=== PATIENT | female | born 2000 | race Caucasian/White ===

== ENCOUNTER 2021-05-07 13:30 | Emergency (ER) | payer OTHER ==
[~2021-05-07] VITALS: Ht 160 cm; Wt 59.7 kg
[2021-05-07 13:49] VITALS: BP 119/70
[2021-05-07 14:48] LABS: ANION GAP 4 mmol/L (5-15); CALCIUM 8.6 mg/dL (8.5-10.1); CHLORIDE 111 mmol/L (98-107); CREATININE 0.49 mg/dL (0.55-1.02)
--- NOTE | 2021-05-07 16:02 | NUR ---
DR. PHIPPS SPOKE WITH PT IN TRIAGE 2 FROM [facility]. PT TO BE DC'D FROM ER AND EVAL'D BY L&D BY TASHA MCCARTNEY ON L&D. PT PROVIDED DC PAPERWORK AND WHEELED TO 2ND FLOOR FOR EVAL.
[2021-05-07 16:09] LABS: BASOPHILS % (AUTO) 0 % (0-1); EOSINOPHILS % (AUTO) 1 % (1-7); LYMPHOCYTES % (AUTO) 10 % (22-44); MEAN CORPUSCULAR HEMOGLOBIN 32.1 pg (27.0-34.8); MEAN CORPUSCULAR HGB CONC 34.5 g/dL (32.4-35.8); MEAN PLATELET VOLUME 8.7 fL (7.4-10.4); MONOCYTES % (AUTO) 7 % (2-9); NEUTROPHILS % (AUTO) 82 % (42-75); PLATELET COUNT 245 x10^3/uL (130-400); RED BLOOD COUNT 4.18 x10^6/uL (3.82-5.3); RED CELL DISTRIBUTION WIDTH 12.6 % (9.6-15.2)
== END 2021-05-07 16:05 | disposition still patient (30) ==
LOC: ED 16:00
DX: O43.0 Placental transfusion syndromes (principal); O23.42 Unspecified infection of urinary tract in pregnancy, second trimester; Z3A.18 18 weeks gestation of pregnancy
CPT/HCPCS: 36415; 76815; 80048; 82040; 84702; 85025; 99284

== ENCOUNTER 2021-05-07 16:08 | Outpatient (CLI) | payer SELFPAY ==
[2021-05-07 17:02] LABS: MICROSCOPIC INDICATED
== END 2021-05-07 22:20 | disposition home or self-care (01) ==
LOC: LDOP 16:08
PROVIDERS: ATTEND Obstetrics & Gynecology
DX: O42.90 Premature rupture of membranes, unspecified as to length of time between rupture and onset of labor, unspecified weeks of gestation (principal); Z3A.00 Weeks of gestation of pregnancy not specified
CPT/HCPCS: 81001; 84112; 87077; 87086; 99211; G0463